=== PATIENT | female | born 1960 | race Two or more races ===

== ENCOUNTER 2017-08-01 07:25 | Emergency (ER) | payer OTHER ==
[~2017-08-01] VITALS: Ht 160 cm; Wt 60.8 kg
[2017-08-01 07:40] VITALS: BP 132/64
--- NOTE | 2017-08-01 07:49 | Emergency Room Report ---
History of Present Illness General Chief Complaint: Pain Source: Patient (Penelope Mittal DO) Present Illness HPI The patient states that for the past week she has had pain in her upper abdomen. She states initially the pain was in her left upper abdomen just under her left rib cage. She states that the pain has now moved to her right flank area. She states that the pain has become more progressive over the week. She states she is unable to sleep secondary to difficulty getting comfortable. She denies fever or chills. She denies nausea or vomiting. She denies dysuria or hematuria. She denies diarrhea or constipation. She has no other complaints. (Penelope Mittal DO) Allergies: Coded Allergies: No Known Allergies (Unverified , 08/01/17) Patient History Past Medical History: none Past Surgical History: none Social History: Denies: smoking, alcohol use, drug use Reviewed Nursing Documentation: PMH: Agreed; PSxH: Agreed (Penelope Mittal DO) Nursing Documentation-PMH Past Medical History: No Stated History (Penelope Mittal DO) Review of Systems All Other Systems: negative except mentioned in HPI (Penelope Mittal DO) Physical Exam Vital Signs Date Time Temp Pulse Resp B/P (MAP) Pulse Ox O2 Delivery O2 Flow Rate FiO2 08/01/17 07:29 97.7 70 16 136/75 96 Room Air 97.7 Sp02 EP Interpretation: reviewed, normal General Appearance: no apparent distress, alert, GCS 15, non-toxic Head: normocephalic, atraumatic Eyes: bilateral eye normal inspection, bilateral eye PERRL ENT: hearing grossly normal, normal pharynx, no angioedema, normal voice Neck: full range of motion, supple/symm/no masses Respiratory: chest non-tender, lungs clear, normal breath sounds, no respiratory distress, no retraction, no accessory muscle use, speaking full sentences Cardiovascular #1: regular rate, rhythm, no edema Gastrointestinal: normal bowel sounds, non tender, soft, non-distended, no guarding, no rebound Rectal: deferred Musculoskeletal: back normal, gait/station normal, normal range of motion, non- tender, tender - R. mid back/flank ttp. Neurologic: alert, oriented x3, responsive, motor strength/tone normal, sensory intact, speech normal Psychiatric: judgement/insight normal, memory normal, mood/affect normal, no suicidal/homicidal ideation Skin: normal color, no rash, warm/dry, well hydrated (Penelope Mittal DO) Medical Decision Making Diagnostic Impression: Primary Impression: Flank pain Additional Impressions: Abdominal pain Liver lesion ER Course This patient presents with musculoskeletal pain. She did have some incidental findings on CT of the abdomen and pelvis that showed some lung lesion and liver lesion. There was no acute diagnosis findings. I suspect this patient's pain is musculo-skeletal etiology. Patient's laboratory workup is noncontributory and benign. Patient was instructed to follow-up closely with her primary care physician for further workup of the findings on CT. Patient given return precautions and follow-up instructions. Laboratory Tests Test 08/01/17 07:55 08/01/17 08:00 White Blood Count 8.7 K/UL (4.8-10.8) Red Blood Count 4.46 M/UL (4.20-5.40) Hemoglobin 12.6 G/DL (12.0-16.0) Hematocrit 38.3 % (37.0-47.0) Mean Corpuscular Volume 86 FL (80-99) Mean Corpuscular Hemoglobin 28.3 PG (27.0-31.0) Mean Corpuscular Hemoglobin Concent 32.9 G/DL (32.0-36.0) Red Cell Distribution Width 10.6 % (11.6-14.8) L Platelet Count 212 K/UL (150-450) Mean Platelet Volume 11.0 FL (6.5-10.1) H Neutrophils (%) (Auto) 55.9 % (45.0-75.0) Lymphocytes (%) (Auto) 28.1 % (20.0-45.0) Monocytes (%) (Auto) 7.9 % (1.0-10.0) Eosinophils (%) (Auto) 7.5 % (0.0-3.0) H Basophils (%) (Auto) 0.6 % (0.0-2.0) Sodium Level 134 MMOL/L (136-145) L Potassium Level 3.9 MMOL/L (3.5-5.1) Chloride Level 98 MMOL/L (98-107) Carbon Dioxide Level 27 MMOL/L (21-32) Anion Gap 9 mmol/L (5-15) Blood Urea Nitrogen 9 mg/dL (7-18) Creatinine 0.7 MG/DL (0.55-1.30) Estimate Glomerular Filtration Rate > 60 mL/min (>60) Glucose Level 100 MG/DL (74-106) Calcium Level 8.5 MG/DL (8.5-10.1) Total Bilirubin 0.6 MG/DL (0.2-1.0) Aspartate Amino Transferase (AST) 12 U/L (15-37) L Alanine Aminotransferase (ALT) 17 U/L (12-78) Alkaline Phosphatase 86 U/L (46-116) Total Protein 8.0 G/DL (6.4-8.2) Albumin 3.2 G/DL (3.4-5.0) L Globulin 4.8 g/dL Albumin/Globulin Ratio 0.7 (1.0-2.7) L Lipase 182 U/L (73-393) Urine Color Pale yellow Urine Appearance Clear Urine pH 7 (4.5-8.0) Urine Specific [place] 1.010 (1.005-1.035) Urine Protein Negative (NEGATIVE) Urine Glucose (UA) Negative (NEGATIVE) Urine Ketones Negative (NEGATIVE) Urine Occult Blood 3+ (NEGATIVE) H Urine Nitrite Negative (NEGATIVE) Urine Bilirubin Negative (NEGATIVE) Urine Urobilinogen Normal MG/DL (0.0-1.0) Urine Leukocyte Esterase Negative (NEGATIVE) Urine RBC 0-2 /HPF (0 - 2) Urine WBC 0-2 /HPF (0 - 2) Urine Squamous Epithelial Cells Occasional /LPF Urine Bacteria Occasional /HPF (NONE) (Penelope Mittal DO) ER Course The rest patient was endorsed to me by Dr. Stacy. The patient was noted to have the CT abdomen pelvis which showed no evidence of acute obstruction or appendicitis. The patient was noted to have the laboratory testing with some elevation of alkaline phosphatase. CT of abdomen pelvis read by radiology showed 1. Small nodularities in the right lower lobe of the lung, query a mild pneumonitis. 2. Tiny right pleural effusion. 3. Slightly prominent CBD 8 mm. Query trace stranding around the gallbladder. Consider right upper quadrant ultrasound. 4. Moderate stool ascending and transverse colon may be constipation. No bowel obstruction. The patient was noted to be taking antibiotics. The patient is advised to follow-up with primary care physician for further evaluation and treatment. The patient is given prescription for acid blockers as well as pain medications.The patient is advised to follow up with primary care doctor in 1- 2 days. Patient is advised to return if any worsening condition or if any changes in status that are concerning. This report is dictated with [employer] submarine cable equipment technician software which may occasionally lead to discrepancies related to use of this software. Labs Test 08/01/17 07:55 08/01/17 08:00 White Blood Count 8.7 K/UL (4.8-10.8) Red Blood Count 4.46 M/UL (4.20-5.40) Hemoglobin 12.6 G/DL (12.0-16.0) Hematocrit 38.3 % (37.0-47.0) Mean Corpuscular Volume 86 FL (80-99) Mean Corpuscular Hemoglobin 28.3 PG (27.0-31.0) Mean Corpuscular Hemoglobin Concent 32.9 G/DL (32.0-36.0) Red Cell Distribution Width 10.6 % (11.6-14.8) Platelet Count 212 K/UL (150-450) Mean Platelet Volume 11.0 FL (6.5-10.1) Neutrophils (%) (Auto) 55.9 % (45.0-75.0) Lymphocytes (%) (Auto) 28.1 % (20.0-45.0) Monocytes (%) (Auto) 7.9 % (1.0-10.0) Eosinophils (%) (Auto) 7.5 % (0.0-3.0) Basophils (%) (Auto) 0.6 % (0.0-2.0) Sodium Level 134 MMOL/L (136-145) Potassium Level 3.9 MMOL/L (3.5-5.1) Chloride Level 98 MMOL/L (98-107) Carbon Dioxide Level 27 MMOL/L (21-32) Anion Gap 9 mmol/L (5-15) Blood Urea Nitrogen 9 mg/dL (7-18) Creatinine 0.7 MG/DL (0.55-1.30) Estimat Glomerular Filtration Rate > 60 mL/min (>60) Glucose Level 100 MG/DL (74-106) Calcium Level 8.5 MG/DL (8.5-10.1) Total Bilirubin 0.6 MG/DL (0.2-1.0) Aspartate Amino Transf (AST/SGOT) 12 U/L (15-37) Alanine Aminotransferase (ALT/SGPT) 17 U/L (12-78) Alkaline Phosphatase 86 U/L (46-116) Total Protein 8.0 G/DL (6.4-8.2) Albumin 3.2 G/DL (3.4-5.0) Globulin 4.8 g/dL Albumin/Globulin Ratio 0.7 (1.0-2.7) Lipase 182 U/L (73-393) Urine Color Pale yellow Urine Appearance Clear Urine pH 7 (4.5-8.0) Urine Specific [place] 1.010 (1.005-1.035) Urine Protein Negative (NEGATIVE) Urine Glucose (UA) Negative (NEGATIVE) Urine Ketones Negative (NEGATIVE) Urine Occult Blood 3+ (NEGATIVE) Urine Nitrite Negative (NEGATIVE) Urine Bilirubin Negative (NEGATIVE) Urine Urobilinogen Normal MG/DL (0.0-1.0) Urine Leukocyte Esterase Negative (NEGATIVE) Urine RBC 0-2 /HPF (0 - 2) Urine WBC 0-2 /HPF (0 - 2) Urine Squamous Epithelial Cells Occasional /LPF Urine Bacteria Occasional /HPF (NONE) (Tyrese Mcguire MD) CT/MRI/US Diagnostic Results CT/MRI/US Diagnostic Results : Imaging Test Ordered: CT abdpelvis Impression 1. Small nodularities in the right lower lobe of the lung, query a mild pneumonitis. 2. Tiny right pleural effusion. 3. Slightly prominent CBD 8 mm. Query trace stranding around the gallbladder. Consider right upper quadrant ultrasound. 4. Moderate stool ascending and transverse colon may be constipation. No bowel obstruction. US ABD: 1. Dense liver may be fatty. 12 mm hypoechoic lesion in the left lobe of the liver. 2. No cholelithiasis or acute cholecystitis. 3. Small right pleural effusion. ([facility],Penelope M. DO) Last Vital Signs Date Time Temp Pulse Resp B/P (MAP) Pulse Ox O2 Delivery O2 Flow Rate FiO2 08/01/17 07:40 74 16 132/64 98 Room Air 08/01/17 07:29 97.7 97.7 ([facility],Penelope M. DO) Status: improved (Tyrese Mcguire MD) Disposition: HOME, SELF-CARE Condition: Stable Penelope Mittal DO Aug 01, 2017 07:49 Tyrese Mcguire MD Aug 02, 2017 23:00
[2017-08-01 08:19] LABS: BASOPHILS % (AUTO) 0.6 % (0.0-2.0); EOSINOPHILS % (AUTO) 7.5 % (0.0-3.0); HEMATOCRIT 38.3 % (37.0-47.0); HEMOGLOBIN 12.6 G/DL (12.0-16.0); LYMPHOCYTES % (AUTO) 28.1 % (20.0-45.0); MEAN CORPUSCULAR VOLUME 86 FL (80-99); MONOCYTES % (AUTO) 7.9 % (1.0-10.0); NEUTROPHILS % (AUTO) 55.9 % (45.0-75.0); PLATELET COUNT 212 K/UL (150-450); RED BLOOD COUNT 4.46 M/UL (4.20-5.40); RED CELL DISTRIBUTION WIDTH 10.6 % (11.6-14.8); WHITE BLOOD COUNT 8.7 K/UL (4.8-10.8)
[2017-08-01 08:25] LABS: APPEARANCE,URINE CLEAR; BILIRUBIN, URINE NEGATIVE (NEGATIVE); COLOR,URINE PALE YELLOW; GLUCOSE, URINE (UA) NEGATIVE (NEGATIVE); KETONES,URINE NEGATIVE (NEGATIVE); LEUKOCYTE ESTERASE ,URINE NEGATIVE (NEGATIVE); NITRITE,URINE NEGATIVE (NEGATIVE); PH,URINE 7 (4.5-8.0); PROTEIN,URINE NEGATIVE (NEGATIVE); UROBILINOGEN,URINE NORMAL MG/DL (0.0-1.0)
[2017-08-01 08:37] LABS: ANION GAP 9 mmol/L (5-15); BLOOD UREA NITROGEN 9 mg/dL (7-18); CALCIUM 8.5 MG/DL (8.5-10.1); CARBON DIOXIDE 27 MMOL/L (21-32); CHLORIDE 98 MMOL/L (98-107); CREATININE 0.7 MG/DL (0.55-1.30); POTASSIUM 3.9 MMOL/L (3.5-5.1); SODIUM 134 MMOL/L (136-145)
[2017-08-01 08:41] LABS: ALANINE AMINOTRANSFERASE 17 U/L (12-78); ALBUMIN 3.2 G/DL (3.4-5.0); ALBUMIN/GLOBULIN RATIO 0.7 (1.0-2.7); ALKALINE PHOSPHATASE 86 U/L (46-116); ASPARTATE AMINO TRANSFERASE 12 U/L (15-37); BILIRUBIN,TOTAL 0.6 MG/DL (0.2-1.0)
--- NOTE | 2017-08-01 10:36 | Diagnostic Imaging Report ---
EXAM: CT Abdomen and Pelvis Without Intravenous Contrast CLINICAL HISTORY: PAIN TECHNIQUE: Axial computed tomography images of the abdomen and pelvis without intravenous contrast. CTDI is 13.45 mGy and DLP is 632 mGy-cm. One or more of the following dose reduction techniques were used: automated exposure control, adjustment of the mA and/or kV according to patient size, use of iterative reconstruction technique. COMPARISON: No relevant prior studies available. FINDINGS: Lung bases: Small nodularities in the right lower lobe of the lung, query a mild pneumonitis. Pleural space: Tiny right pleural effusion. ABDOMEN: Liver: 9.6 mm low-density lesion left lobe of the liver. Gallbladder and bile ducts: Slightly prominent CBD 8 mm. Query trace stranding around the gallbladder. Consider right upper quadrant ultrasound. No calcified stones. Pancreas: Unremarkable. No ductal dilation. Spleen: Unremarkable. No splenomegaly. Adrenals: Unremarkable. No mass. Kidneys and ureters: Unremarkable. No obstructing stones. No hydronephrosis. Stomach and bowel: Moderate stool ascending and transverse colon may be constipation. No bowel obstruction. A few scattered colonic diverticula. No mucosal thickening. PELVIS: Appendix: No findings to suggest acute appendicitis. Normal appendix. Bladder: Unremarkable. No stones. Reproductive: Uterus and adnexa unremarkable. ABDOMEN and PELVIS: Intraperitoneal space: Unremarkable. No free air. No significant fluid collection. Bones/joints: No acute fracture. No dislocation. Soft tissues: Unremarkable. Vasculature: Unremarkable. No abdominal aortic aneurysm. Lymph nodes: Numerous small retroperitoneal lymph nodes. Small mesenteric and retroperitoneal lymph nodes. IMPRESSION: 1. Small nodularities in the right lower lobe of the lung, query a mild pneumonitis. 2. Tiny right pleural effusion. 3. Slightly prominent CBD 8 mm. Query trace stranding around the gallbladder. Consider right upper quadrant ultrasound. 4. Moderate stool ascending and transverse colon may be constipation. No bowel obstruction.
--- NOTE | 2017-08-01 13:07 | Diagnostic Imaging Report ---
EXAM: US Abdomen Complete CLINICAL HISTORY: PAIN TECHNIQUE: Real-time ultrasound of the abdomen (complete) with image documentation. COMPARISON: CT abdomen and pelvis today FINDINGS: Liver: Dense liver may be fatty. 12 mm hypoechoic lesion in the left lobe of the liver. Liver measures 12.7 cm. No intrahepatic bile duct dilation. Gallbladder: Gallbladder wall is normal, 2.8 mm. No gallstones. Common bile duct: CBD normal, 5.2 mm. No stones. No dilation. Pancreas: Unremarkable as visualized. Kidneys: Right kidney measures 10.3 x 3.8 x 5.2 cm. Left kidney measures 10.4 x 4.8 x 5.0 cm. No stones. No hydronephrosis. Spleen: Spleen measures 9.9 cm. Aorta: Unremarkable. No aneurysm. Inferior vena cava: Unremarkable. Pleural space: Small right pleural effusion. IMPRESSION: 1. Dense liver may be fatty. 12 mm hypoechoic lesion in the left lobe of the liver. 2. No cholelithiasis or acute cholecystitis. 3. Small right pleural effusion.
[2017-08-01 13:28] VITALS: BP 132/64
== END 2017-08-01 13:29 | disposition home or self-care (01) ==
LOC: EMR 08:03
DX: R10.10 Upper abdominal pain, unspecified (principal); K76.9 Liver disease, unspecified; J90 Pleural effusion, not elsewhere classified
CPT/HCPCS: 36415; 74176; 76700; 80053; 81003; 83690; 85025; 96360; 99284

== ENCOUNTER 2018-03-19 18:58 | Emergency (ER) | payer OTHER ==
[~2018-03-19] VITALS: Ht 162.6 cm; Wt 61.2 kg
--- NOTE | 2018-03-19 19:16 | NUR ---
ED Nurse Note: Pt walked in to ED due to vomiting, chills and coughing since yesterday. 99 F at the triage. Will cont to monitor.
[2018-03-19 19:19] VITALS: BP 132/75
[2018-03-19] MEDS ORDERED: ONDANSETRON ODT4 MG BC (19:36)
[2018-03-19] MEDS ORDERED: TAMIFLU75 MG ORAL (19:36)
--- NOTE | 2018-03-19 20:00 | NUR ---
ED Nurse Note: pt being d/c o home, pt is awake, alert and oriented x 4, ambulatory, no cp, no sob, pt given prescription and f/u info and after care instructions, nad noted during d/c to home.
--- NOTE | 2018-03-20 14:50 | Emergency Room Report ---
History of Present Illness General Chief Complaint: Flu Like Symptoms Source: Patient Present Illness HPI 57-year-old female presents ED for evaluation. States she's been having cough congestion nausea and weakness since yesterday. Afebrile in triage. Cough is productive with yellowish phlegm. Notes body aches and chills. Notes nausea and vomiting. Denies any diarrhea. States she did not receive flu vaccine this year. Denies sick contacts or recent travel. No other aggravating relieving factors. Denies any other associated symptoms Allergies: Coded Allergies: No Known Allergies (Unverified , 08/01/17) Patient History Past Medical History: none Past Surgical History: none Pertinent Family History: none Social History: Denies: smoking, alcohol use, drug use Last Menstrual Period: menopause Now: No Immunizations: UTD Reviewed Nursing Documentation: PMH: Agreed; PSxH: Agreed Nursing Documentation-PMH Past Medical History: No Stated History Review of Systems All Other Systems: negative except mentioned in HPI Physical Exam Vital Signs Date Time Temp Pulse Resp B/P (MAP) Pulse Ox O2 Delivery O2 Flow Rate FiO2 03/19/18 19:06 99.0 85 19 140/73 96 Room Air Sp02 EP Interpretation: reviewed, normal General Appearance: no apparent distress, alert, GCS 15, non-toxic Head: normocephalic, atraumatic Eyes: bilateral eye normal inspection, bilateral eye PERRL ENT: hearing grossly normal, normal pharynx, no angioedema, normal voice Neck: full range of motion, supple/symm/no masses Respiratory: chest non-tender, lungs clear, normal breath sounds, speaking full sentences Cardiovascular #1: regular rate, rhythm, no edema Cardiovascular #2: 2+ carotid (R), 2+ carotid (L), 2+ radial (R), 2+ radial (L) , 2+ dorsalis pedis (R), 2+ dorsalis pedis (L) Gastrointestinal: normal bowel sounds, non tender, soft, non-distended, no guarding, no rebound Rectal: deferred Genitourinary: normal inspection, no CVA tenderness Musculoskeletal: back normal, gait/station normal, normal range of motion, non- tender Neurologic: alert, oriented x3, responsive, motor strength/tone normal, sensory intact, speech normal Psychiatric: judgement/insight normal, memory normal, mood/affect normal, no suicidal/homicidal ideation Reflexes: 3+ bicep (R), 3+ bicep (L), 3+ tricep (R), 3+ tricep (L), 3+ knee (R) , 3+ knee (L) Skin: normal color, no rash, warm/dry, well hydrated Lymphatic: no adenopathy Medical Decision Making Diagnostic Impression: Primary Impression: Influenza-like symptoms ER Course Hospital Course 57-year-old F presents to ED complaining of chills + bodyaches + cough Differential diagnoses include: URI, pharyngitis, otitis media, influenza Clinical course Patient placed on stretcher. After initial history physical exam reveals a middle aged female in no acute distress. Bilateral TM unremarkable, no pharyngeal erythema. Lungs clear. No CVA tenderness. conderation for influenza. Vital stable. Afebrile. Given that I will treat her with Tamiflu Safe for discharge or close outpatient follow-up. Patient states she has a PMD Diagnosis - influenza-like symptoms Stable and discharged home with prescriptions for tamiflu, zofran. drink plenty of fluids. Instructed to followup with PMD. Return to ED if symptoms recur or worsen Last Vital Signs Date Time Temp Pulse Resp B/P (MAP) Pulse Ox O2 Delivery O2 Flow Rate FiO2 03/19/18 19:19 99.0 84 12 132/75 96 Room Air Status: improved Disposition: HOME, SELF-CARE Condition: Stable Scripts Ondansetron Odt* (ZOFRAN ODT*) 4 Mg Tab.rapdis 4 MG BC EVERY 6 HOURS PRN for Nausea & Vomiting, #10 TAB 0 Refills Prov: Albaro Beverly MD 03/19/18 Oseltamivir Phosphate (Tamiflu) 75 Mg Capsule 75 MG ORAL TWICE A DAY for 5 Days, CAP Prov: Albaro Beverly MD 03/19/18 Referrals: [facility],REFERRING (PCP) Audra Garza [facility] Patient Instructions: Influenza, Adult, [id number] Albaro Beverly MD Mar 20, 2018 14:50
== END 2018-03-19 20:00 | disposition home or self-care (01) ==
LOC: EMR 19:31
DX: J11.1 Influenza due to unidentified influenza virus with other respiratory manifestations (principal)
CPT/HCPCS: 99282